=== PATIENT | female | born 1955 | race Asian ===

== ENCOUNTER 2025-02-03 07:50 | Day surgery (SDC) | payer OTHER ==
[2025-01-20 11:53] VITALS: BMI 28.9
[2025-02-03 09:50] VITALS: TEMP 97.9
[2025-02-03 10:06] VITALS: RESP 18
[2025-02-03 11:09] VITALS: BP 127/58; PULSE 63
== END 2025-02-03 11:00 | disposition home or self-care (01) ==
LOC: JASU-ENDO 07:50
PROVIDERS: ATTEND Internal Medicine Gastroenterology
PROC: 0DBL8ZX Excision of Transverse Colon, Via Natural or Artificial Opening Endoscopic, Diagnostic (ICD-10-PCS; 2025-02-03)
PROC: 0DBH8ZX Excision of Cecum, Via Natural or Artificial Opening Endoscopic, Diagnostic (ICD-10-PCS; principal; 2025-02-03 09:30)
DX: Z12.11 Encounter for screening for malignant neoplasm of colon (principal); D12.3 Benign neoplasm of transverse colon; D12.0 Benign neoplasm of cecum; K64.8 Other hemorrhoids
CPT/HCPCS: 88305-TC